=== PATIENT | female | born 1970 | race Caucasian/White ===

== ENCOUNTER 2017-05-09 18:46 | Inpatient (IN) | payer BC, OTHER ==
[~2017-05-09] VITALS: Ht 157.5 cm; Wt 86.2 kg
--- NOTE | 2017-05-10 13:45 | NUR ---
PRE ADMISSION 46 year old female presented at intake, reports is from [facility]. Patient is alert and oriented x4, appears disheveled, noted with tremors, diaphoretic, appears anxious and irritable. patient with racing thoughts. Patient reports no known drug allergies. Patient reports substance use history of etoh-vodka on a daily basis , per patient reports last drink 05/09/2017. Patient reports weekly use of unknown amount of crack cocaine, and reports took Ativan unknown strength 40 tabs from 04/29/2017-05/03/2017) reports she was not drinking vodka while taking Ativan. Patient brought home medication : b12. denies any pre existing medical or psychiatric conditions. reports history of seizure x2 ( 2013& 2014). Patient reports she does have a primary care physician but cannot recall the name or number of the doctor, the doctor is located in [facility]. bp: 144/92 hr: 92 t: 98.0 r: 16 o2 sat: 98%. patient was also seen by Dr. Garza at intake office, per MD will input admitting orders. patient was educated regarding all unit policies and procedures, with good verbal understanding.
[2017-05-10] MEDS ORDERED: THIAMINE HCL 200 MG/2 ML VIAL IM ONE (14:00)
[2017-05-10] MEDS ORDERED: LOPERAMIDE HCL 2 MG CAPSULE PO PRN ×2 (14:00)
[2017-05-10] MEDS ORDERED: MIRALAX 17 GM POWD.PACK PO PRN (14:00)
[2017-05-10] MEDS ORDERED: ONDANSETRON ODT 4 MG TAB.RAPDIS SL PRN (14:00)
[2017-05-10] MEDS ORDERED: MAGNESIUM HYDROXIDE 30 ML LIQUID UDC PO PRN (14:00)
[2017-05-10] MEDS ORDERED: MAG HYDROX/AL HYDROX/SIMETH 30 ML LIQUID UDC PO PRN (14:00)
[2017-05-10] MEDS ORDERED: DICYCLOMINE HCL 20 MG TABLET PO PRN (14:00)
[2017-05-10] MEDS ORDERED: LORAZEPAM 1 MG TABLET PO PRN ×2 (14:00)
[2017-05-10] MEDS ORDERED: ONDANSETRON 4 MG/2 ML VIAL IM PRN (14:00)
[2017-05-10] MEDS ORDERED: LORAZEPAM 2 MG/1 ML VIAL IM PRN (14:00)
--- NOTE | 2017-05-10 14:04 | NUR ---
[facility]ION [facility], body search conducted by female SUPERCALENDER OPERATOR no contraband found. Body assessment completed by staff nurse, patient noted with multiple small bruise on bilateral arms, per patient [place] "[place] airport[place] here" patient was oriented to unit and to room, educated regarding call light use with good verbal understanding. Patient reports substance use of: etoh- vodka per patient began drinking alcohol at the age of 12-13 years old, per patient for the past 5 years has been consuming alcohol on a daily basis. reports crack cocaine usage, first used in college, but as of January 2017 has been smoking unknown amount ($100 worth) on a weekly basis, last used: 05/03/2017. Benzodiazepine- Ativan, per patient received Ativan 40 tabs of unknown strength from a relative. per patient took unknown amount form 04/29/2017-05/03/2017, per patient was not drinking alcohol during this time. Patient reports her longest period of sobriety was for 37 days 2 years ago. Reports treatment history of: [place] July 2014[place]July 2014 for 23 days. patient is alert and oriented, presenting with tremors, diaphoretic, anxious, irritable, clammy skin, agitated with admitting ciwa score of: 17. Patient brought vitamin b12 with her, reports she takes one tab on a daily basis. Patient denies any pre existing medical or psychiatric conditions. Patient errors two episodes of seizure due to withdrawal one in jan 2017 and one in 2014. reports family history of sister opiate dependence and grandmother etoh dependence. Patient reports currently resides with her boyfriend in [place]. reports surgical history of: gastric by pass in 2005 and c section in 1991. patients safety measures are in place. call light kept with in reach. will continue to monitor closely.
[2017-05-10 14:41] LABS: *URINE HCG, QUAL NEGATIVE (NEGATIVE)
[2017-05-10 14:56] VITALS: BP 144/92
[2017-05-10] MEDS: GABAPENTIN 300 MG CAPSULE PO SCH ×2 (14:57→21:12)
--- NOTE | 2017-05-10 14:57 | NUR ---
PRN ATIVAN Patient presented with: tremors, flushed face, clammy skin, diaphoretic, anxiety, and agitation with ciwa score of: 17. MD was notified. as per MD orders patient to receive 2mg Ativan PO as ordered for s/sx of withdrawal. will monitor effectiveness of medication.
[2017-05-10] MEDS ORDERED: THIAMINE HCL 100 MG TABLET PO ONE (15:00)
[2017-05-10 15:03] LABS: *AMPHETAMINE, URINE NEGATIVE (NEGATIVE); *BARBITURATE, URINE NEGATIVE (NEGATIVE); *CANNABINOID, URINE NEGATIVE (NEGATIVE); *COCCAINE, URINE NEGATIVE (NEGATIVE); *OPIATE, URINE NEGATIVE (NEGATIVE); *PHENCYCLIDINE SCREEN,URINE NEGATIVE (NEGATIVE)
[2017-05-10 15:42] LABS: BASOPHILS % (AUTO) 1.1 % (0.0-2.0); EOSINOPHILS % (AUTO) 0.6 % (0.0-7.0); HEMATOCRIT 34.7 % (31.2-41.9); HEMOGLOBIN 11.7 g/dL (10.9-14.3); MEAN CORPUSCULAR HEMOGLOBIN 29.1 uug (24.7-32.8); MEAN CORPUSCULAR HGB CONC 34 g/dL (32.3-35.6); MEAN CORPUSCULAR VOLUME 86.2 fL (75.5-95.3); MONOCYTES # (AUTO) 0.4 K/uL (2.0-10.0); MONOCYTES % (AUTO) 9.7 % (0.0-11.0); NEUTROPHILS # (AUTO) 2.3 K/uL (1.8-8.9); NEUTROPHILS % (AUTO) 61.6 % (38.5-71.5); PLATELET COUNT (AUTO) 260 K/uL (179-408); RED BLOOD CELL COUNT(AUTO) 4.02 MIL/uL (3.63-4.92); WHITE BLOOD COUNT (AUTO) 3.7 K/uL (3.8-11.8)
--- NOTE | 2017-05-10 15:57 | NUR ---
ATIVAN REASSESSMENT Medication effective at reducing withdrawal symptoms, ciwa score from 17-14, will continue to monitor.
[2017-05-10 16:00] VITALS: BP 140/90
[2017-05-10 16:01] LABS: ETHANOL < 3 MG/DL (0-0)
[2017-05-10 16:04] LABS: ALANINE AMINOTRANSFERASE 88 U/L (14-59); ALKALINE PHOSPHATASE 135 U/L (50-136); AMYLASE 37 U/L (25-115); ASPARTATE AMINOTRANSFERASE 62 U/L (15-37); BILIRUBIN,TOTAL 0.7 mg/dL (0.2-1.0); CARBON DIOXIDE 28 mmol/L (21-32); CHLORIDE 98 mmol/L (98-107); CREATININE 0.9 mg/dL (0.6-1.3); GLUCOSE 192 mg/dL (74-106); LIPASE 226 U/L (73-393); MAGNESIUM 1.6 mg/dL (1.8-2.4); POTASSIUM 3.5 mmol/L (3.5-5.1); TOTAL PROTEIN, SERUM 7.7 g/dL (6.4-8.2); UREA NITROGEN, BLOOD 9 mg/dL (7-18)
--- NOTE | 2017-05-10 19:13 | NUR ---
END OF SHIFT Patient alert and oriented x4, Patient has anxious, worried, and irritable facial expression. Mood is flat and labile. Patient continues under close observation, placed on 5 day Ativan taper as ordered and is scheduled to begin taper tomorrow morning for withdrawal, has PRN medications for s/sx of withdrawal under close observation. During shift patient presented with: tremors, sweats, anxiety and agitation, Initial ciwa score of:17, last ciwa score of: 14. Encouraged increase in PO fluid intake as tolerated, to facilitate detox. Received PRN: Ativan 2mg PO during shift for s/sx of withdrawal. patient was encouraged adequate PO fluid intake as tolerated, patient encouraged to develop coping skills and utilization of non pharmacological interventions. Patient was encouraged to participate in therapy session .Encouraged diversional activities to alleviate anxiety. Denies any SI/HI. Safety measures in place. Call light kept with in reach, patient endorsed to weight shifter nurse, all pertinent information was discussed.
--- NOTE | 2017-05-10 19:30 | NUR ---
START OF SHIFT Received 46 year old female patient. Pt is alert and oriented x4. Pt is noted to be anxious, restless and fatigued. Per endorsement, she received PRN Ativan and is scheduled to start a 5 day Ativan taper for ETOH withdrawal. Breathing is even and unlabored. Safety measures in place. Will continue to monitor.
[2017-05-10 20:00] VITALS: BP 132/84
--- NOTE | 2017-05-10 21:11 | NUR ---
PRN ATIVAN Pt complains of anxiety, agitation and restlessness. CIWA:14. PRN Ativan administered as ordered. Breathing even and unlabored. Safety measures in place. Will monitor effectiveness.
--- NOTE | 2017-05-10 22:11 | NUR ---
PRN ATIVAN REASSESSMENT PRN medication effective. Pt lying in bed with eyes closed noted to be asleep. Breathing is even and unlabored, safety measures in place. Will continue to monitor.
[2017-05-11] VITALS: BP 120/88
[2017-05-11 04:00] VITALS: BP 122/77
--- NOTE | 2017-05-11 07:04 | NUR ---
END OF SHIFT Pt is a 46 year old female patient. Pt remains alert and oriented x4. Pt was noted to be anxious, restless and fatigued during the shift. She received PRN Ativan 1 mg for CIWA:14. She slept a total of 8 hrs, Intake: 1210mL, Void: x2, BM:0, CIWA: 14. Breathing is even and unlabored. Safety measures in place. Endorsed to AM shift.
--- NOTE | 2017-05-11 07:45 | NUR ---
START OF SHIFT Received report from shiftman nurse. Pt is lying in bed resting. She is a 46 yo female admitted to [facility] on 05/10 for ETOH dependence with a h/o using crack cocaine, and Ativan. NKA, full code, regular diet. On admission she reported drinking vodka 1-2 pints per day. 5 day Ativan taper to start today. Mg level 1.6 with orders for replacement today. Pt's hair and clothes are disheveled and she is observed with tremors. Respirations even and unlabored. Skin is warm and moist. Safety measures in place.
[2017-05-11 08:00] VITALS: BP 140/78
[2017-05-11] MEDS: LORAZEPAM 1 MG TABLET PO SCH ×4 (08:55→20:59)
[2017-05-11] MEDS: DOCUSATE SODIUM 250 MG CAPSULE PO SCH (08:56)
[2017-05-11] MEDS: THIAMINE HCL 100 MG TABLET PO SCH (08:56)
[2017-05-11] MEDS: FOLIC ACID 1 MG TABLET PO SCH (08:56)
[2017-05-11] MEDS: MULTIVITAMINS,THERAPEUTIC TABLET PO SCH (08:56)
[2017-05-11] MEDS: GABAPENTIN 300 MG CAPSULE PO SCH ×3 (08:56→21:00)
[2017-05-11] MEDS ORDERED: TUBERCULIN,PURIF.PROT.DERIV. 5 TU/0.1 ML TEST ID ONE (09:00)
[2017-05-11] MEDS ORDERED: MAGNESIUM OXIDE 400 MG TABLET PO ONE (09:00)
[2017-05-11] MEDS ORDERED: 5 DAY TAPER OF LORAZEPAM -SERENITY PROTOCOL PO PRN (09:00)
[2017-05-11 12:00] VITALS: BP 143/96
[2017-05-11] MEDS: IBUPROFEN 400 MG TABLET PO PRN ×2 (12:47→21:00)
--- NOTE | 2017-05-11 12:50 | NUR ---
PRN Motrin Pt reports neck and back ache 09/16. PRN Motrin administered.
--- NOTE | 2017-05-11 13:50 | NUR ---
PRN Motrin reassessment PRN Motrin effective at reducing pt's pain level to 3/10.
[2017-05-11] MEDS: ACETAMINOPHEN 325 MG TABLET PO PRN ×2 (15:58→23:49)
[2017-05-11 16:00] VITALS: BP 140/97
--- NOTE | 2017-05-11 16:00 | NUR ---
PRN Tylenol Pt c/o bilateral leg and arm pain 08/17. PRN Tylenol administered.
--- NOTE | 2017-05-11 17:00 | NUR ---
PRN Tylenol reassessment PRN Tylenol effective. Pt's pain level reduced to 3/10.
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
[2017-05-11 20:00] VITALS: BP 141/99
--- NOTE | 2017-05-11 20:00 | NUR ---
START OF SHIFT NOTE RECEIVED REPORT FROM DAY SHIFT NURSE. PATIENT IS A 46 YEAR OLD FEMALE ADMITTED FOR ETOH WITHDRAWAL . PATIENT WAS PLACED ON 5 DAY ATIVAN TAPER, STARTED TODAY. PATIENT WAS GIVEN PRN MOTRIN AND TYLENOL. LAST CIWA 8. RECEIVED PATIENT IN THE ROOM. PATIENT STATES SHE'S ANXIOUS, NAUSEATED NO EMESIS BUT DOESN'T WANT ANYTHING, NOTED WITH BILATERAL HAND TREMORS AND REPORTS MUSCLE ACHES. SAFETY MEASURES IN PLACE. CALL LIGHT IN REACH. WILL CONTINUE TO MONITOR
--- NOTE | 2017-05-11 21:00 | NUR ---
PRN MOTRIN ADMINISTRATION PATIENT C/O MUSCLE ACHES. WILL MONITOR FOR EFFECTIVENESS
--- NOTE | 2017-05-11 22:00 | NUR ---
PRN MOTRIN RE-ASSESSMENT PATIENT STATES MOTRIN IS SOMEWHAT EFFECTIVE. PAIN LEVEL IS 4 AT THIS TIME. SHE STATES SHE WILL TRY TO RELAX AND WILL TRY TO SLEEP.
[2017-05-11] MEDS: diphenhydrAMINE 50 MG CAPSULE PO PRN (23:49)
--- NOTE | 2017-05-11 23:49 | NUR ---
PA BENADRYL AND TYLENOL ADMINISTRATION PATIENT REQUESTS FOR SLEEP AID AND STILL C/O GENERALIZED MUSCLE ACHES. WILL MONITOR FOR EFFECTIVENESS
[2017-05-12] VITALS: BP 144/97
--- NOTE | 2017-05-12 00:49 | NUR ---
PRN TYLENOL AND BENADRYL RE-ASSESSMENT PATIENT IN BED WITH EYES CLOSED . RESPIRATION EVEN AND UNLABORED. WILL CONTINUE TO MONITOR.
--- NOTE | 2017-05-12 07:04 | NUR ---
END OF SHIFT NOTE PATIENT SLEPT 6 HOURS. FLUID INTAKE 1710 ML. VOIDED X 1. NO BM. MONITORED THROUGHOUT SHIFT. PATIENT ON ATIVAN TAPER, TOLERATED WELL AND NO ADVERSE REACTION. PATIENT WAS ANXIOUS, NAUSEATED NO EMESIS BUT DOESN'T WANT ANYTHING, NOTED WITH BILATERAL HAND TREMORS AND REPORTS MUSCLE ACHES BEGINNING OF SHIFT. PATIENT WAS GIVEN PRN MOTRIN GIVEN. AT 2349, PATIENT REQUESTED FOR SLEEP AID AND HAD GENERALIZED BODY ACHES . PRN BENADRYL AND TYLENOL GIVEN. SAFETY MEASURES IN PLACE. CALL LIGHT IN REACH. WILL CONTINUE TO MONITOR. LAST CIWA 4.
--- NOTE | 2017-05-12 07:12 | NUR ---
BEGINNING OF SHIFT Patient endorsement report received from night manager nurse, all pertinent information discussed. Patient is a 46 year old female with admitting Dx: etoh withdrawal, and substance us e of: weekly cocaine usage and one week use of Ativan. Patient continues under very close observation, patient continues on 5 day Ativan taper as ordered. Per night manager patient with last cow score of: 6. received PRN: Motrin, Tylenol, and Benadryl. per night manager. slept for 6 hours. Fall and seizure precautions observed at all times. Patient received awake, alert and oriented x4, educated regarding plan of care for the day, and medication regimen with good verbal understanding. will continue to monitor closely. safety measures in place.
[2017-05-12 07:25] LABS: BASOPHILS % (AUTO) 1.2 % (0.0-2.0); EOSINOPHILS # (AUTO) 0.1 K/uL (0.0-0.7); EOSINOPHILS % (AUTO) 2.5 % (0.0-7.0); HEMATOCRIT 32.3 % (31.2-41.9); HEMOGLOBIN 10.8 g/dL (10.9-14.3); LYMPHOCYTES # (AUTO) 1.6 K/uL (20.0-40.0); LYMPHOCYTES % (AUTO) 45.2 % (20.5-51.5); MEAN CORPUSCULAR HEMOGLOBIN 28.8 uug (24.7-32.8); MEAN CORPUSCULAR HGB CONC 34 g/dL (32.3-35.6); MEAN CORPUSCULAR VOLUME 85.8 fL (75.5-95.3); MONOCYTES # (AUTO) 0.3 K/uL (2.0-10.0); MONOCYTES % (AUTO) 8.3 % (0.0-11.0); NEUTROPHILS # (AUTO) 1.5 K/uL (1.8-8.9); NEUTROPHILS % (AUTO) 42.8 % (38.5-71.5); PLATELET COUNT (AUTO) 221 K/uL (179-408); RED BLOOD CELL COUNT(AUTO) 3.76 MIL/uL (3.63-4.92); WHITE BLOOD COUNT (AUTO) 3.6 K/uL (3.8-11.8)
[2017-05-12 07:42] LABS: BILIRUBIN,DIRECT 0.2 mg/dL (0.0-0.2); BILIRUBIN,TOTAL 0.5 mg/dL (0.2-1.0); CREATININE 0.6 mg/dL (0.6-1.3); MAGNESIUM 2.1 mg/dL (1.8-2.4); PHOSPHOROUS 3.7 mg/dL (2.5-4.9); POTASSIUM 3.5 mmol/L (3.5-5.1); TOTAL PROTEIN, SERUM 6.6 g/dL (6.4-8.2)
[2017-05-12 08:56] VITALS: BP 122/78
[2017-05-12] MEDS: FOLIC ACID 1 MG TABLET PO SCH (08:58)
[2017-05-12] MEDS: GABAPENTIN 300 MG CAPSULE PO SCH ×3 (08:58→20:03)
[2017-05-12] MEDS: MULTIVITAMINS,THERAPEUTIC TABLET PO SCH (08:58)
[2017-05-12] MEDS: LORAZEPAM 1 MG TABLET PO SCH ×3 (08:58→20:02)
[2017-05-12] MEDS: DOCUSATE SODIUM 250 MG CAPSULE PO SCH (08:58)
[2017-05-12] MEDS: THIAMINE HCL 100 MG TABLET PO SCH (08:58)
--- NOTE | 2017-05-12 09:30 | NUR ---
Client prompted client to come to all groups/activities today to engage with others and not be isolated in his room. Therapist encouraged client to try to share his feeling/thoughts so he does not build up feelings/thoughts which may negatively impact him. Therapist encouraged client to also meet with therapist if they feel they cannot cope with going to group so they can have one/one therapy session to help process feelings/thoughts.
[2017-05-12 13:26] VITALS: BP 150/98
[2017-05-12] MEDS: CLONIDINE HCL 0.1 MG TABLET PO PRN ×2 (15:18→23:21)
[2017-05-12] MEDS: METHOCARBAMOL 750 MG TABLET PO PRN ×2 (15:18→23:20)
[2017-05-12] MEDS: IBUPROFEN 400 MG TABLET PO PRN (15:18)
--- NOTE | 2017-05-12 15:18 | NUR ---
PRN CLONIDINE/MOTRIN/ROBAXIN Patient reports increase pain 7/10, c/o myalgia and has increase BP. Patients BP: 150/98 HR: 89. Administered Robaxin as ordered, Motrin as ordered and clonidine as ordered, will monitor effectiveness of medication closely.
--- NOTE | 2017-05-12 16:18 | NUR ---
CLONIDINE/ROBAXIN/MOTRIN REASSESSMENT patient reports medication effective. pain level 2/10, tolerable pain level as per patient. no further c/o myalgia. BP decreased to: 144/85 hr: 86. safety measures in place. will continue to monitor closely.
[2017-05-12 16:44] VITALS: BP 144/85
--- NOTE | 2017-05-12 18:52 | NUR ---
END OF SHIFT Patient alert and oriented x4, Patient is disheveled, anxious, worried, with irritable facial expression. Mood is flat and labile. Patient easily agitated. Has poor eye contact. Patient has clothes throw on floor, and empty bottles in room, patient was encouraged to self groom and maintain personal area. placed on 5 day Ativan taper as ordered and continues on day 2 of taper. During shift patient presented with: tremors, sweats, anxiety and agitation, Initial ciwa score of:11, last ciwa score of: 10. Encouraged increase in PO fluid intake as tolerated, to facilitate detox. Received no PRNs during shift. patient was encouraged adequate PO fluid intake as tolerated, patient encouraged to develop coping skills and utilization of non pharmacological interventions. Patient was encouraged to participate in therapy session .Encouraged diversional activities to alleviate anxiety. Denies any SI/HI. Safety measures in place. Call light kept with in reach, patient endorsed to shift superintendent nurse, all pertinent information was discussed.
--- NOTE | 2017-05-12 19:30 | NUR ---
START OF SHIFT Received 46 year old female patient. Pt is alert and oriented x4. Pt is noted to be anxious, agitated, angry and irritable. Pt reports she is upset that she is unable to shower because there is currently no hot water. She appears disheveled with flushed face. Per endorsement, pt received PRN Clonidine, Motrin and Robaxin. Breathing is even and unlabored, safety measures in place. Will continue to monitor.
[2017-05-12 20:00] VITALS: BP 145/89
[2017-05-12 23:20] VITALS: BP 140/93
--- NOTE | 2017-05-12 23:20 | NUR ---
PRN BENADRYL, ROBAXIN, CLONIDINE Pt complains of insomnia and body aches. Pt also noted with increased BP of 140/93. HR:95. PRN Benadryl, Robaxin and Clonidine administered as ordered. Safety measures in place. Will monitor effectiveness.
[2017-05-12] MEDS: diphenhydrAMINE 50 MG CAPSULE PO PRN (23:21)
--- NOTE | 2017-05-13 00:20 | NUR ---
PRN REASSESSMENT PRN medications effective. Pt lying in bed with eyes closed noted to be asleep. No facial grimacing noted. BP decreased to 135/85 HR:82. Breathing is even and unlabored, safety measures in place. Will continue to monitor.
[2017-05-13 00:22] VITALS: BP 135/85
--- NOTE | 2017-05-13 04:00 | NUR ---
VITALS REFUSED, CIWA DEFERRED 0400 vitals refused. CIWA deferred d/t pt lying in bed with eyes closed noted to be asleep. Breathing is even and unlabored. Safety measures in place. Will continue to monitor.
[2017-05-13 05:06] LABS: HEPATITIS B SURFACE AG Negative (Negative)
--- NOTE | 2017-05-13 07:01 | NUR ---
END OF SHIFT Pt is a 46 year old female patient. Pt remains alert and oriented x4. Pt was noted with anxiety, agitation, and irritability during the shift. She received PRN Clonidine, Robaxin and Benadryl. She was able to sleep: 6 hrs, Intake: 1200mL, void: x3, BM:0, CIWA:8. Breathing is even and unlabored, safety measures in place. Endorsed to AM shift.
--- NOTE | 2017-05-13 07:05 | NUR ---
START OF SHIFT NOTE Patient is alert awake 46 year old female, admitted for ETOH withdrawal. Patient continues with 5 days Ativan taper tolerating well. Per endorsement pt received PRN Benadryl, Clonidine, Robaxin effective per night nurse, slept for 6 hours, last CIWA-8. Patient noted anxious, agitated wants to take shower. Educated patient on current plan of the day and medications regimen with good verbal understanding. Safety measures in place. Will cont with plan of care.
[2017-05-13 08:00] VITALS: BP 121/80
[2017-05-13] MEDS: GABAPENTIN 300 MG CAPSULE PO SCH ×3 (08:25→20:25)
[2017-05-13] MEDS: LORAZEPAM 1 MG TABLET PO SCH ×2 (08:25→12:00)
[2017-05-13] MEDS: FOLIC ACID 1 MG TABLET PO SCH (08:25)
[2017-05-13] MEDS: MULTIVITAMINS,THERAPEUTIC TABLET PO SCH (08:25)
[2017-05-13] MEDS: THIAMINE HCL 100 MG TABLET PO SCH (08:33)
--- NOTE | 2017-05-13 09:30 | NUR ---
Therapist prompted client about group times. Client plans to attend all groups today.
[2017-05-13] MEDS: CLONIDINE HCL 0.1 MG TABLET PO PRN (12:06)
--- NOTE | 2017-05-13 12:06 | NUR ---
PRN CLONIDINE Patient's blood pressure noted 156/113, PRN Clonidine 0.1mg PO given as ordered. Will cont to monitor and reassess the pt.
[2017-05-13 12:12] VITALS: BP 156/113
--- NOTE | 2017-05-13 13:06 | NUR ---
CLONIDINE REASSESSMENT Blood pressure noted 136/84, Clonidine noted effective. Patient denies any s/s of distress.
[2017-05-13 16:00] VITALS: BP 110/74
[2017-05-13] MEDS ORDERED: LORAZEPAM 1 MG TABLET PO SCH ×2 (17:00→21:00)
--- NOTE | 2017-05-13 19:11 | NUR ---
END OF SHIFT NOTE Patient is alert oriented. Patient is anxious, agitated, worried with irritable facial expression. Mood is labile. Patient has clothes thrown all over her room, Patient continues with Ativan taper tolerating well. During shift patient received PRN Clonidine for increased blood pressure noted to be effective. Patient able to consumed 100% of her meals, encourage PO fluids as tolerated. Encourage pt to develop coping skills and utilization of non pharmacological intervention. Patient was encouraged to participates in groups therapy session. Encourage diversional activities to alleviate anxiety. Patient denies any SI/HI. Safety measures in place. Patient endorsed to night nurse in stable condition.
--- NOTE | 2017-05-13 19:30 | NUR ---
START OF SHIFT Received 46 year old female patient admitted on 05/10/17 for ETOH withdrawal. Pt is alert and oriented x4. She continues on a 5 day Ativan taper and is tolerating well. Pt is noted with anxiety, restlessness, racing thoughts, flushed face, and irritability. Per endorsement, she received PRN Clonidine. Last CIWA:11 at 1600. Breathing is even and unlabored, safety measures in place. Will continue to monitor.
[2017-05-13 20:19] VITALS: BP 124/79
[2017-05-13] MEDS: diphenhydrAMINE 50 MG CAPSULE PO PRN (20:24)
--- NOTE | 2017-05-13 20:24 | NUR ---
PRN BENADRYL/ROBAXIN Pt complains of difficulty falling asleep and generalized body/muscle aches. PRN Benadryl and Robaxin administered as ordered. Breathing even and unlabored, safety measures in place. Will monitor effectiveness.
[2017-05-13] MEDS: METHOCARBAMOL 750 MG TABLET PO PRN (20:25)
[2017-05-13] MEDS: CLONIDINE HCL 0.1 MG TABLET PO SCH (20:26)
--- NOTE | 2017-05-13 21:24 | NUR ---
PRN REASSESSMENT PRN Robaxin effective. Pt reports decrease in muscle/body aches. PRN Benadryl ineffective. Pt still awake, appears drowsy and reports she is ready to sleep soon. Breathing is even and unlabored. Safety measures in place. Will monitor.
--- NOTE | 2017-05-14 | NUR ---
VITALS REFUSED, CIWA DEFERRED 0000 vitals refused. CIWA deferred d/t pt lying in bed with eyes closed noted to be asleep. Breathing is even and unlabored. Safety measures in place. Will continue to monitor.
--- NOTE | 2017-05-14 04:00 | NUR ---
VITALS REFUSED, CIWA DEFERRED Pt refused 0400 vitals. CIWA deferred d/t pt lying in bed with eyes closed noted to be asleep. Breathing is even and unlabored, respirations 16. Safety measures in place. Will continue to monitor.
--- NOTE | 2017-05-14 07:06 | NUR ---
END OF SHIFT Pt is a 46 year old female patient admitted on 05/10/17 for ETOH withdrawal. She remains alert and oriented x4. She continues on a 5 day Ativan taper which was modified on 05/13/17 and is tolerating well. She was noted with anxiety, restlessness, racing thoughts, flushed face, and irritability during the shift. At 2023 she received PRN Robaxin and Benadryl. She slept a total of 8 hrs, Intake: 2065mL, Void: x3, BM:1, Last CIWA:10 at 1999. Breathing is even and unlabored, safety measures in place. Will endorsed to AM shift.
--- NOTE | 2017-05-14 07:41 | NUR ---
START OF SHIFT Endorse rcvd from ongoing nurse, client is in room, she is a/o x 4, client presents with depressed mood, flat affect, disheveled, dark circles under her eyes, dry lips, tremors, moist skin, difficulty concentrating. Client reports feeling fatigue, headache, nausea, decrease appetite, stomach cramps, cold/chills, pins and needle on lower extremities. Encourage client to attend group therapy for skills to maintain sober. Encourage client to increase PO fluid intake to facilitate detox. Modified 6 day Ativan taper (4th day), last CIWA 10 @ 1999. PRN Robaxin 750 mg PO for myalgia,Benadryl 50mg PO for inability to sleep, client slept 8 hrs. Seizure precautions rendered. Call light within reach.
[2017-05-14 08:00] VITALS: BP 111/68
[2017-05-14] MEDS ORDERED: LORAZEPAM 1 MG TABLET PO SCH ×3 (09:00→21:00)
[2017-05-14] MEDS: THIAMINE HCL 100 MG TABLET PO SCH (09:04)
[2017-05-14] MEDS: MULTIVITAMINS,THERAPEUTIC TABLET PO SCH (09:05)
[2017-05-14] MEDS: FOLIC ACID 1 MG TABLET PO SCH (09:05)
[2017-05-14] MEDS: CLONIDINE HCL 0.1 MG TABLET PO SCH ×2 (09:05→20:13)
[2017-05-14] MEDS: GABAPENTIN 300 MG CAPSULE PO SCH ×3 (09:05→20:12)
--- NOTE | 2017-05-14 09:22 | NUR ---
PRN Ativan 1mg PO administered for anxiety, irritability, intermittent nausea, feeling of panic, restlessness, headache, CIWA 12. Call light within reach. Addendum: 05/14/17 at 1819 by ANA MARIA WORKMAN RN WRONG CLIENT
[2017-05-14 12:00] VITALS: BP 111/80
[2017-05-14 16:59] VITALS: BP 102/68
--- NOTE | 2017-05-14 19:11 | NUR ---
END OF SHIFT Endorsed client to incoming nurse, client is in room, she is a/o x 4, client continues to present with depressed mood, flat affect, tremors, moist skin, difficulty concentrating, fatigue, headache, nausea, decrease appetite, stomach cramps, cold/chills, pins and needle on lower extremities. Client is compliant with 2/3 of group therapy, client remains isolated in her room for the most part. Client consumed ~ 50 % of meal. Adequate PO fluid intake 2100mL, void x 4, stool x1. Last CIWA 13 @ 1600. Call light within reach.
--- NOTE | 2017-05-14 19:30 | NUR ---
START OF SHIFT Received 46 year old female patient admitted on 05/10/17 for ETOH withdrawal. She continues on her Ativan tapert and is tolerating well. Pt is alert and oriented x4. She is noted with anxiety, restlessness, irritability, flushed face, and racing thoughts. Per endorsement, she did not receive or request PRN medication, and attended 1/3 of groups. Last CIWA:13 at 1700. Breathing is even and unlabored, safety measures in place. Will continue to monitor.
[2017-05-14 20:11] VITALS: BP 112/75
[2017-05-14] MEDS: diphenhydrAMINE 50 MG CAPSULE PO PRN (20:12)
[2017-05-14] MEDS: METHOCARBAMOL 750 MG TABLET PO PRN (20:13)
--- NOTE | 2017-05-14 20:13 | NUR ---
PRN BENADRYL/ROBAXIN Pt complains of insomnia and muscle aches/spasms. PRN Benadryl and Robaxin administered as ordered. Breathing even and unlabored, safety measures in place. Will monitor effectiveness.
[2017-05-14] MEDS: IBUPROFEN 600 MG TABLET PO PRN (20:51)
--- NOTE | 2017-05-14 20:51 | NUR ---
PRN MOTRIN Pt complains of headache 08/17. PRN Motrin administered as ordered for pain. Breathing is even and unlabored, safety measures in place. Will continue to monitor effectiveness.
--- NOTE | 2017-05-14 21:51 | NUR ---
PRN REASSESSMENT PRN medications effective. Pt is lying in bed with eyes closed and is noted to be asleep. No facial grimacing. Breathing is even and unlabored. Safety measures in place. Will continue to monitor.
--- NOTE | 2017-05-15 | NUR ---
VITALS REFUSED/CIWA DEFERRED 0000 vital signs refused. CIWA deferred d/t pt is lying in bed with eyes closed noted to be asleep. Breathing is even and unlabored. Respirations 16. Safety measures in place. Will continue to monitor.
--- NOTE | 2017-05-15 04:00 | NUR ---
VITALS REFUSED/CIWA DEFERRED 0400 vital signs refused. CIWA deferred d/t pt is lying in bed with eyes closed noted to be asleep. Breathing is even and unlabored. Respirations 16. Safety measures in place. Will monitor.
--- NOTE | 2017-05-15 07:04 | NUR ---
END OF SHIFT Pt is 46 year old female patient admitted on 05/10/17 for ETOH withdrawal. She continues on her Ativan taper and tolerating well. Pt remains alert and oriented x4. She was noted with anxiety, restlessness, irritability, flushed face, and racing thoughts during the shift. She received PRN Benadryl, Robaxin and Motrin. She slept a total of 7hrs, Intake:1460 mL, Void:x2, BM:x1, CIWA: 11 at 2000. Breathing is even and unlabored, safety measures in place. Will endorse to AM shift.
--- NOTE | 2017-05-15 07:30 | NUR ---
START OF SHIFT Endorse rcvd from ongoing nurse, client is in room, a/o x 4, client presents with anxious mood, flat affect, flushed face, clammy skin, tremors, and restless legs. Client reports feelings of panic, she stated, "Any little noise makes me jump, and I can feel my heart racing, I hope I have Ativan coming up soon, I really need to calm down." headache, nausea, decrease appetite, stomach cramps, and cold/chills. Encourage client to attend group therapy to learn skills to maintain sobriety. Encourage client to increase PO fluid intake to facilitate detox. Modified 6 day Ativan taper (5th day), last CIWA 11 @ 1999. PRN Robaxin 750 mg PO for myalgia, Motrin 600mg PO for pain, Benadryl 50mg PO for inability to sleep, client slept 8 hrs. Seizure precautions rendered. Call light within reach.
[2017-05-15] MEDS: THIAMINE HCL 100 MG TABLET PO SCH (08:27)
[2017-05-15] MEDS: MULTIVITAMINS,THERAPEUTIC TABLET PO SCH (08:27)
[2017-05-15] MEDS: FOLIC ACID 1 MG TABLET PO SCH (08:27)
[2017-05-15] MEDS: GABAPENTIN 300 MG CAPSULE PO SCH ×3 (08:27→20:40)
[2017-05-15] MEDS: CLONIDINE HCL 0.1 MG TABLET PO SCH ×2 (08:27→20:40)
[2017-05-15 08:30] VITALS: BP 113/73
[2017-05-15] MEDS ORDERED: LORAZEPAM 1 MG TABLET PO SCH (09:00)
[2017-05-15 12:18] VITALS: BP 112/78
[2017-05-15] MEDS: HYDROXYZINE PAMOATE 25 MG CAPSULE PO PRN ×2 (12:35→21:58)
--- NOTE | 2017-05-15 12:35 | NUR ---
PRN Vistaril 25mg PO, Clonidine 0.1mg PO administered for anziety and BP 141/82 respectively. Call light within reach. Will continue to monitor. Addendum: 05/15/17 at 1258 by ANA MARIA WORKMAN RN anxiety
[2017-05-15] MEDS: CLONIDINE HCL 0.1 MG TABLET PO PRN (12:36)
--- NOTE | 2017-05-15 13:35 | NUR ---
Reassess PRN Vistaril 25mg, Clonidine 0.1mg client reports feeling less anxious, she is able to eat lunch and carry a conversation with a peer. BP 115/69.
[2017-05-15] MEDS: LORAZEPAM 1 MG TABLET PO SCH ×2 (14:06→20:40)
[2017-05-15 16:54] VITALS: BP 105/76
--- NOTE | 2017-05-15 19:00 | NUR ---
Start of Shift Patient Received. Patient is in her room, awake, alert and verbally responsive. Breathing even and non labored. Per endorsement, she continues on a modified Ativan taper. Patient was seen and evaluated by MD with an additional dose of Ativan ordered. Patient also received PRN Clonidine for elevated blood pressure with medication noted to be effective. Also PRN Vistaril administered for increased anxiety with medication noted to be effective. Last noted CIWA 12. Patient needs further encouragement in group and social activity participation. All needs attended to promptly. Will continue plan of care as ordered.
--- NOTE | 2017-05-15 19:06 | NUR ---
END OF SHIFT Endorse client to incoming nurse, client is in room, a/o x 4, client continues to present with anxious mood, flat affect, flushed face, clammy skin, tremors, and restless legs, headache, nausea, stomach cramps, and cold/chills. Client consumes ~75% of meals. Adequate PO fluid intake 1765mL, void x 4, stool x 2. Client is compliant with 2/3 of group therapy. Last CIWA 12 @ 1600. PRN Vistaril 25mg PO for anxiety, Clonidine 0.1mg PO for BP 141/82, decreased after an hour to BP 115/69. Seizure precautions rendered. Call light within reach.
[2017-05-15 20:33] VITALS: BP 121/81
[2017-05-15] MEDS: METHOCARBAMOL 750 MG TABLET PO PRN (20:41)
[2017-05-15] MEDS: diphenhydrAMINE 50 MG CAPSULE PO PRN (20:41)
--- NOTE | 2017-05-15 20:45 | NUR ---
PRN Medication Administration Patient is noted verbalizing increased lower back cramps and inability of falling asleep. PRN Robaxin and Benadryl administered as per order. Will continue to monitor.
[2017-05-15] MEDS: IBUPROFEN 600 MG TABLET PO PRN (22:00)
--- NOTE | 2017-05-15 22:00 | NUR ---
PRN Medication Reassessment/PRN Medication Administration Patient is noted verbalizing increased pain due to headache and increased anxiety. When asked if PRN Robaxin and PRN Benadryl were effective patient was noted verbalizing "I feel like my back is better but I'm having trouble going to sleep because I'm anxious. Now I just have a headache." PRN Motrin administered with PRN Vistaril. Will continue to monitor.
--- NOTE | 2017-05-15 23:00 | NUR ---
PRN Medication Reassessment patient is noted in bed sleeping. Breathing even and on labored. No restlessness or facial grimacing noted. Patient was given PRN Vistaril and PRN Motrin with medication noted to be effective. Will continued to monitor.
[2017-05-16 00:20] VITALS: BP 98/65
[2017-05-16 04:15] VITALS: BP 111/79
--- NOTE | 2017-05-16 07:01 | NUR ---
End of Shift Patient is noted in bed sleeping. Breathing even and non labored. No signs of restlessness of discomfort. Patient continues on a modified Ativan taper. Patient received PRN Benadryl, Robaxin, Motrin, and Vistaril. Patient noted to sleep in intervals and slept a total of 2 intermittently. Last noted CIWA 8. Will endorse to encourage patient to participate in group and social activities. All needs attended to promptly. Will endorse to continue plan of care as ordered.
--- NOTE | 2017-05-16 07:20 | NUR ---
START OF SHIFT PATIENT IS A 46 YR OLD FEMALE ADMITTED TO [facility] ON 05/10/17. PATIENT IS ON DAY 5 OF A MODIFIED ATIVAN TAPER. PATIENT IS AWAKE AND ALERT AT THIS TIME, VOICING CONCERNS ABOUT WHERE SHE IS GOING TO REHAB TOMORROW, REASSURED HER THAT THE LIGHT TRUCK DRIVER WOULD BE GOING OVER EVERYTHING WITH HER. PATIENT APPEARS ANXIOUS AND FIDGETY WITH A FLAT AFFECT. PRN MEDS GIVEN ON PM SHIFT: BENADRYL, ROBAXIN, MOTRIN AND VISTARIL. PATIENT SLEPT FOR 2 + HOURS AND LAST CIWA WAS 8 @ 0400. WILL CONTINUE TO FOLLOW MD PLAN OF CARE. CALL LIGHT WITHIN REACH.
[2017-05-16 08:00] VITALS: BP 114/75
[2017-05-16] MEDS: MULTIVITAMINS,THERAPEUTIC TABLET PO SCH (08:40)
[2017-05-16] MEDS: CLONIDINE HCL 0.1 MG TABLET PO SCH ×2 (08:40→20:50)
[2017-05-16] MEDS: THIAMINE HCL 100 MG TABLET PO SCH (08:40)
[2017-05-16] MEDS: FOLIC ACID 1 MG TABLET PO SCH (08:40)
[2017-05-16] MEDS: GABAPENTIN 300 MG CAPSULE PO SCH ×3 (08:40→20:50)
[2017-05-16] MEDS ORDERED: LORAZEPAM 1 MG TABLET PO SCH (09:00)
[2017-05-16] MEDS: HYDROXYZINE PAMOATE 25 MG CAPSULE PO PRN ×3 (10:13→22:50)
--- NOTE | 2017-05-16 10:13 | NUR ---
PRN VISTARIL 25MG PO VISTARIL GIVEN FOR C/O ANXIETY, WILL CONTINUE TO MONITOR
--- NOTE | 2017-05-16 11:13 | NUR ---
PRN REASSESS PATIENT STATES THAT VISTARIL 25MG PO HAS HELPED RELAX HER A LITTLE MORE, WILL CONTINUE TO MONITOR
[2017-05-16 12:00] VITALS: BP 111/79
[2017-05-16] MEDS: IBUPROFEN 600 MG TABLET PO PRN (14:56)
--- NOTE | 2017-05-16 15:00 | NUR ---
PRN MOTRIN 600MG MOTRIN PO GIVEN FOR HEADACHE 11/17 WILL REASSESS
[2017-05-16 16:00] VITALS: BP 113/75
--- NOTE | 2017-05-16 16:00 | NUR ---
PRN MOTRIN REASSESS PATIENT STATES THAT MOTRIN 600MG PO CLEARED UP HER HEADACHE AND SHE IS IN 0/10 PAIN
[2017-05-16] MEDS: CLONIDINE HCL 0.1 MG TABLET PO PRN (16:48)
--- NOTE | 2017-05-16 16:48 | NUR ---
PRN MEDS CLONIDINE 0.1MG PO AND VISTARIL 25MG PO GIVEN FOR PATIENTS C/O ANXIETY AND AGITATION, WILL CONTINUE TO MONITOR
--- NOTE | 2017-05-16 17:48 | NUR ---
PRN REASSESSMENT PATIENT STATES SHE FEELS A BIT MORE RELAXED NOW AND LESS ANXIOUS, VISTARIL AND CLONIDINE EFFECTIVE, WILL CONTINUE TO MONITOR.
--- NOTE | 2017-05-16 18:43 | NUR ---
END OF SHIFT : PATIENT WAS ADMITTED TO [facility] ON 05/10/17 AND IS TO BE DISCHARGED TOMORROW 05/17/17. PATIENT HAS COMPLETED A MODIFIED ATIVAN TAPER AND IS CURRENTLY ONLY ON PRN MEDS. PATIENT IS ANXIOUS AND HAS A FLAT AFFECT. SHE HAS ATTENDED ALL GROUPS TODAY . PRN MEDS GIVEN ON THIS SHIFT: VISTARIL X2 , CLONIDINE AND MOTRIN. PATIENT HAD A FLUID INTAKE OF 2670ML, 5 VOIDS AND 2 BM. LAST CIWA @ 1600 WAS 8. CONTINUE TO FOLLOW MD PLAN OF CARE.
[2017-05-16] MEDS ORDERED: GABA-534 PO ×2 (18:56)
[2017-05-16] MEDS ORDERED: DIPH50CA37 PO (18:56)
[2017-05-16] MEDS ORDERED: HYDR-3895 PO (18:56)
[2017-05-16] MEDS ORDERED: METH-406 PO (18:56)
[2017-05-16] MEDS ORDERED: CLON0.1T14 PO (18:56)
--- NOTE | 2017-05-16 19:08 | NUR ---
N/V PRN ZOFRAN ZOFRAN 4MG SL GIVEN FOR N/V X 4 EPISODES, WILL ENDORSE TO NIGHT NURSE TO REASSESS
--- NOTE | 2017-05-16 19:38 | NUR ---
LESLEE TYLER RE-ASSESSMENT PATIENT STATES ZOAN HELPFUL AND EFFECTIVE. SHE STATES SHE FEEL BETTER. VOMITING CEASED
[2017-05-16 20:00] VITALS: BP 108/77
--- NOTE | 2017-05-16 20:08 | NUR ---
START OF SHIFT NOTE / ZOFRAN RE-ASSESSMENT RECEIVED REPORT FROM DAY SHIFT NURSE. PATIENT IS A 46 YEAR OLD FEMALE ADMITTED FOR ETOH WITHDRAWAL. PATIENT COMPLETED 5 DAY ATIVAN TAPER. PATIENT IS MEDICALLY CLEARED TO BE DISCHARGE TOMORROW. PATIENT WAS GIVEN PRN VISTARIL, MOTRIN, VISTARIL, CLONIDINE AND ZOFRAN. LAST CIWA 8. RECEIVED PATIENT IN THE ROOM. PATIENT'S ROOM SMELL AND D PATIENT DISHEVELED. SHE STATES SHE'S ANXIOUS DUE TO HER LEAVING TOMORROW. SAFETY MEASURES IN PLACE. CALL LIGHT IN REACH. WILL CONTINUE TO MONITOR. Addendum: 05/16/17 at 2171 by GOPI BOWDEN LVN ERROR - ZOFRAN RE-ASSESSMENT / ZOFRAN WAS RE-ASSESSED AT 1938
[2017-05-16] MEDS: diphenhydrAMINE 50 MG CAPSULE PO PRN (22:50)
[2017-05-16] MEDS: METHOCARBAMOL 750 MG TABLET PO PRN (22:50)
--- NOTE | 2017-05-16 22:50 | NUR ---
PRN VISTARIL, ROBAXIN ANS BENADRYL ADMINISTRATION PATIENT ANXIETY , C/O MUSCLE ACHES AND UNABLE TO SLEEP. WILL MONITOR FOR EFFECTIVENESS
--- NOTE | 2017-05-17 | NUR ---
PRN MEDS RE-ASSESSMENT/CIWA DEFERRED PATIENT IN BED WITH EYES CLOSED. RESPIRATION EVEN AND UNLABORED. SAFETY MEASURES IN PLACE. CALL LIGHT IN REACH. WILL CONTINUE TO MONITOR
[2017-05-17 04:00] VITALS: BP 106/67
--- NOTE | 2017-05-17 04:00 | NUR ---
CIWA DEFERRED PATIENT IN BED WITH EYES CLOSED. RESPIRATION EVEN AND UNLABORED. SAFETY MEASURES IN PLACE. CALL LIGHT IN REACH. WILL CONTINUE TO MONITOR
--- NOTE | 2017-05-17 07:19 | NUR ---
END OF SHIFT NOTE PATIENT SLEPT 8 HOURS. FLUID INTAKE 1,565 ML. VOIDED X 3 . NO BM. PATIENT WAS ANXIOUS BEGINNING OF SHIFT DUE TO HER LEAVING. PATIENT COMPLIANT WITH MEDICATION AND TREATMENT PLAN. MEDICATION ARE EFFECTIVE IN CONTROLLING HER WITHDRAWAL SYMPTOMS, NO ADVERSE REACTION. SHE WAS GIVEN PRN BENADRYL FOR SLEEP, VISTARIL AND ROBAXIN AT 2250. SAFETY MEASURES IN PLACE.CALL LIGHT IN REACH. WILL CONTINUE TO MONITOR. LAST CIWA 2. T
--- NOTE | 2017-05-17 07:20 | NUR ---
START OF SHIFT PATIENT IS A 46 YR OLD FEMALE ADMITTED TO [facility] ON 05/10/17. PATIENT HAS COMPLETED A MODIFIED ATIVAN TAPER. PATIENT IS AWAKE AND ALERT AT THIS TIME. PATIENT APPEARS ANXIOUS AND FIDGETY WITH A FLAT AFFECT. PRN MEDS GIVEN ON PM SHIFT: BENADRYL, ROBAXIN AND VISTARIL. PATIENT SLEPT FOR 8 HOURS AND LAST CIWA WAS 2 @ 0400. PATIENT WILL BE DISCHARGED THIS AM TO AFTER CARE. WILL CONTINUE TO FOLLOW MD DISCHARGE PLAN. CALL LIGHT WITHIN REACH.
[2017-05-17 08:00] VITALS: BP 108/73
[2017-05-17 08:19] VITALS: BP 108/73
[2017-05-17] MEDS: MULTIVITAMINS,THERAPEUTIC TABLET PO SCH (08:19)
[2017-05-17] MEDS: IBUPROFEN 600 MG TABLET PO PRN (08:19)
[2017-05-17] MEDS: FOLIC ACID 1 MG TABLET PO SCH (08:19)
[2017-05-17] MEDS: CLONIDINE HCL 0.1 MG TABLET PO SCH (08:19)
[2017-05-17] MEDS: THIAMINE HCL 100 MG TABLET PO SCH (08:19)
[2017-05-17] MEDS: GABAPENTIN 300 MG CAPSULE PO SCH (08:19)
[2017-05-17] MEDS: HYDROXYZINE PAMOATE 25 MG CAPSULE PO PRN (08:20)
--- NOTE | 2017-05-17 08:20 | NUR ---
PRN MEDS PRN MOTRIN 600MG PO AND VISTARIL 25MG PO GIVEN FOR C/O ANXIETY AND HEADACHE 06/17 WILL REASSESS
--- NOTE | 2017-05-17 09:20 | NUR ---
PRN REASSESS MOTRIN EFFECTIVE FOR HEADACHE 03/19 NOW VISTARIL EFFECTIVE PATIENT STATES SHE FEELS LESS ANXIOUS
--- NOTE | 2017-05-17 09:30 | NUR ---
DISCHARGE NOTE : PATIENT DISCHARGED TO " [facility]AN MERGED WITH [facility] " VIA PRIVATE CAR. ALL DC PAPERWORK SIGNED AND DATED. VS STABLE, ALL BELONGINGS, MEDICATIONS AND RX RETURNED TO PATIENT. PATIENT HAS NO SI/HI AT THIS TIME. PATIENT AMBULATED OFF THE UNIT AT 0930 AND WAS PICKED UP IN HOSPITAL LOBBY FOR TRANSPORT TO " [facility]".
== END 2017-05-17 09:30 | DRG 895 ==
LOC: SRC 05-10 13:01
PROVIDERS: ADMIT Internal Medicine; ATTEND Internal Medicine
PROC: HZ2ZZZZ Detoxification Services for Substance Abuse Treatment (ICD-10-PCS; principal; 2017-05-10)
PROC: HZ41ZZZ Group Counseling for Substance Abuse Treatment, Behavioral (ICD-10-PCS; 2017-05-12)
PROC: HZ31ZZZ Individual Counseling for Substance Abuse Treatment, Behavioral (ICD-10-PCS; 2017-05-13)
DX: F10.230 Alcohol dependence with withdrawal, uncomplicated (principal); K70.10 Alcoholic hepatitis without ascites; E83.42 Hypomagnesemia; I15.9 Secondary hypertension, unspecified; E87.1 Hypo-osmolality and hyponatremia; F13.10 Sedative, hypnotic or anxiolytic abuse, uncomplicated; Z91.89 Other specified personal risk factors, not elsewhere classified; Z98.84 Bariatric surgery status; Y90.0 Blood alcohol level of less than 20 mg/100 ml; D72.819 Decreased white blood cell count, unspecified; D64.9 Anemia, unspecified
CPT/HCPCS: 36415; 70030-TC; 80307; 83690; 83735; 84100; 84703; 85025; 86580; 86592; 86705; 86803; 87340; 87806; A4663; G0480; Q0162; Q0163